=== PATIENT | male | born 1950 ===

== ENCOUNTER → 2018-04-28 09:00 | Outpatient (CLI) | payer OTHER ==
[~2018-04-28 09:00] MED LIST: CARDURA8 MG PO; FINESTERIDE PO; HUMLOG; IBRERSARTAN PO; LASIX PO; METFORMIN HCL1000 M1 PO; OMEPRAZOLE20 MG PO; SYNTHROID200 MCG PO; ULTRAM50 MG PO; [UNRECOGNIZED DRUG - CODE]
== END | disposition home or self-care (01) ==
LOC: ADM 08:00 → LAB 09:00 → CIR.AMB 05-01 08:00 → EDSTATUS 05-30 08:00 → CIR.AMB 05-30 08:00
DX: R22.2 Localized swelling, mass and lump, trunk (principal); D66 Hereditary factor VIII deficiency; Z01.812 Encounter for preprocedural laboratory examination; Z01.810 Encounter for preprocedural cardiovascular examination; Z01.811 Encounter for preprocedural respiratory examination